=== PATIENT | female | born 1970 | race African-American/Black ===

== ENCOUNTER 2021-03-11 15:11 | Emergency (ER) | payer OTHER ==
[~2021-03-11] VITALS: Ht 170.2 cm; Wt 110.7 kg
--- NOTE | 2021-03-11 15:20 | NUR ---
Bibs for sore and itchy on bilateral feet x 4 days. Denies pain. Denies trauma. Will continue to monitor the patient.
[2021-03-11] MEDS ORDERED: CEPH500T PO (15:54)
[2021-03-11] MEDS ORDERED: SULF1TAB48 PO (15:54)
[2021-03-11 16:23] VITALS: BP 123/84
--- NOTE | 2021-03-11 16:23 | NUR ---
Patient discharged to home in stable condition. Written and verbal after care instructions given. Patient verbalizes understanding of instruction.
[2021-03-11] MEDS ORDERED: ONDANSETRON HCL 4 MG/5 ML SOLUTION ONE (16:24)
[2021-03-11] MEDS ORDERED: ONDANSETRON HCL 4 MG/5 ML SOLUTION PO ONE (16:30)
== END 2021-03-11 16:28 | disposition home or self-care (01) ==
LOC: ER 15:21
DX: L03.116 Cellulitis of left lower limb (principal); L03.115 Cellulitis of right lower limb; E11.621 Type 2 diabetes mellitus with foot ulcer; I10 Essential (primary) hypertension; F31.9 Bipolar disorder, unspecified; F25.9 Schizoaffective disorder, unspecified; Z79.899 Other long term (current) drug therapy
CPT/HCPCS: 82962; 99283; Q0162

== ENCOUNTER 2024-04-07 15:11 | Emergency (ER) | payer OTHER ==
[~2024-04-07] VITALS: Ht 172.7 cm; Wt 107.0 kg
[~2024-04-07 15:11] MED LIST: CEPH500T PO; SULF1TAB48 PO
[2024-04-07 15:31] VITALS: TEMP 98.4
[2024-04-07] MEDS ORDERED: IBUPROFEN 600 MG TABLET ONE (15:57)
[2024-04-07] MEDS: IBUPROFEN 600 MG TABLET PO ONE (16:00)
[2024-04-07] MEDS ORDERED: IBUP-1490 PO (18:34)
[2024-04-07 18:39] VITALS: BP 120/79; O2SAT 100
== END 2024-04-07 18:40 | disposition home or self-care (01) ==
LOC: ER 15:17
DX: S20.211A Contusion of right front wall of thorax, initial encounter (principal); E11.9 Type 2 diabetes mellitus without complications; I10 Essential (primary) hypertension; F25.9 Schizoaffective disorder, unspecified; F31.9 Bipolar disorder, unspecified; Z79.899 Other long term (current) drug therapy; Y04.0XXA Assault by unarmed brawl or fight, initial encounter; Y93.89 Activity, other specified; Y92.89 Other specified places as the place of occurrence of the external cause; Y99.8 Other external cause status
CPT/HCPCS: 71100-TC; 71250-TC